=== PATIENT | female | born 1950 | race Caucasian/White ===

== ENCOUNTER 2018-07-30 06:20 | Day surgery (SDC) | payer MEDICARE, BC ==
[~2018-07-30 06:20] MED LIST: Acetaminophen TAB* 325 MG PO PRN
[2018-07-30] MEDS ORDERED: Midazolam* 1 MG/ML 5 ML VIAL (5 MG) ONE (07:26)
[2018-07-30 09:57] VITALS: BP 112/62
--- NOTE | 2018-07-30 10:01 | OP ---
OPERATIVE REPORT: DATE OF OPERATION: 07/30/18 DATE OF : 48 SURGEON: Ortiz Madrigal MD ANESTHESIA: Monitored anesthesia care. PRE-OP DIAGNOSIS: Cataract, right eye. POST-OP DIAGNOSIS: Cataract, right eye. OPERATIVE PROCEDURE: Extracapsular cataract extraction of the right eye with intraocular lens implant. IMPLANTS: SN60WF 21.5 diopter lens to the right eye. COMPLICATIONS: None. DESCRIPTION OF PROCEDURE: The patient was given phenylephrine 2.5% and cyclopentolate 1% eye drops to the operative eye in the preoperative area. The patient was sat in the upright position and corneal markings were placed at 0 and 180 degrees to assist in toric lens placement. The patient was taken to the operating room, where a time-out was taken to identify the correct patient, site, and side of surgery. The patient's right eye was prepped and draped in the usual sterile fashion with 5% Betadine. A second time-out was taken to verify the correct patient, side, and site of surgery and correct lens selection. A lid speculum was placed to the right eye. Corneal markings were placed at the 73- degree meridian. A 1 mm paracentesis blade was used to make a clear corneal incision in the superotemporal position. Preservative-free 1% lidocaine was injected into the anterior chamber. DisCoVisc was then injected into the anterior chamber. A 2.75 mm keratome blade was used to make a triplanar incision at the inferotemporal position. A cystotome initiated a capsulorrhexis, which was completed with Utrata forceps in a continuous and curvilinear manner. Hydrodissection of the lens was performed with BSS on a cannula. The lens could be spun in a capsular bag. The phacoemulsification handpiece was used with a divide- and-conquer technique to remove the nucleus. The I/A handpiece then removed the residual cortical lens material. Provisc was then injected to inflate the capsular bag and the eye pressure was then confirmed to be adequate pressure with applanation. The ORA system was then used to confirm the patient's lens power and astigmatism. The ORA system suggested a non-toric SN60WF 21.5 diopter lens for the least residual refractive error. Therefore, this lens was selected. I informed the patient of the change to the non-toric lens intraoperatively and she expressed understanding. The SN60WF 21.5 diopter lens was then injected into the capsular bag. The residual Provisc was then removed from the eye with the I/A handpiece. The corneal incisions were hydrated and no leaks occurred at physiologic pressure around 20 mmHg per palpation. The lid speculum was removed and drapes were removed. Maxitrol ointment was placed to the surface of the operative eye. An adhesive patch and shield was then placed on the operative eye. I again confirmed with her that given the ORA measurements, I did not place a Toric lens. The patient was taken to the postoperative area in stable condition. [id number]/[facility] #: [id number] MTDMaria Del Carmen
[2018-07-30] MEDS ORDERED: Lidocaine 1%* 5 ML VIAL ONE (12:52)
[2018-07-30] MEDS ORDERED: Tropicamide 1% OPTH.SOL* BTL ONE (12:52)
[2018-07-30] MEDS ORDERED: Phenylephrine OPHTH SOL 2.5%* 2 ML ONE (12:52)
[2018-07-30] MEDS ORDERED: Tetracaine 0.5% OPTH.SOL 4 ML* 1 DROP BTL ONE (12:52)
[2018-07-30] MEDS ORDERED: Ketorolac 0.5% OPHTH (NF) 0.5 % 5 ML BTL ONE (12:52)
[2018-07-30] MEDS ORDERED: Povidone Iodine 5% OPTH* 30 ML BTL ONE (12:52)
[2018-07-30] MEDS ORDERED: acetaZOLAMIDE TAB* 250 MG ONE (12:52)
[2018-07-30] MEDS ORDERED: Cyclopentolate 1% OPTH.SOL* 2 ML BTL ONE (12:52)
[2018-07-30] MEDS ORDERED: Neomycin/Polymy/Dex OPHTH.OIN* 3.5 GM ONE (12:52)
== END 2018-07-30 08:22 | disposition home or self-care (01) ==
LOC: OREAST 06:20
PROVIDERS: ATTEND Student in an Organized Health Care Education/Training Program
DX: H25.11 Age-related nuclear cataract, right eye (principal); H04.123 Dry eye syndrome of bilateral lacrimal glands; I48.91 Unspecified atrial fibrillation; Z79.01 Long term (current) use of anticoagulants; M06.9 Rheumatoid arthritis, unspecified
CPT/HCPCS: A9270-GY; J2250; V2632

== ENCOUNTER 2018-08-13 06:30 | Day surgery (SDC) | payer MEDICARE, BC ==
[2018-08-13] MEDS ORDERED: Midazolam* 1 MG/ML 2 ML VIAL (2 MG) ONE ×2 (07:18→07:19)
[2018-08-13 08:04] VITALS: BP 118/65
[2018-08-13] MEDS ORDERED: Tetracaine 0.5% OPTH.SOL 4 ML* 1 DROP BTL ONE (11:11)
[2018-08-13] MEDS ORDERED: Cyclopentolate 1% OPTH.SOL* 2 ML BTL ONE (11:11)
[2018-08-13] MEDS ORDERED: acetaZOLAMIDE TAB* 250 MG ONE (11:11)
[2018-08-13] MEDS ORDERED: Tropicamide 1% OPTH.SOL* BTL ONE (11:11)
[2018-08-13] MEDS ORDERED: Phenylephrine OPHTH SOL 2.5%* 2 ML ONE (11:11)
[2018-08-13] MEDS ORDERED: Lidocaine 1%* 5 ML VIAL ONE (11:11)
[2018-08-13] MEDS ORDERED: Ketorolac 0.5% OPHTH (NF) 0.5 % 5 ML BTL ONE (11:11)
[2018-08-13] MEDS ORDERED: Neomycin/Polymy/Dex OPHTH.OIN* 3.5 GM ONE (11:11)
[2018-08-13] MEDS ORDERED: Povidone Iodine 5% OPTH* 30 ML BTL ONE (11:11)
--- NOTE | 2018-08-13 11:31 | OP ---
OPERATIVE REPORT: DATE OF OPERATION: 08/13/18 DATE OF : 48 SURGEON: Ortiz Madrigal MD ANESTHESIA: Monitored anesthesia care. PRE-OP DIAGNOSIS: Cataract, left eye. POST-OP DIAGNOSIS: Cataract, left eye. OPERATIVE PROCEDURE: Extracapsular cataract extraction of the left eye with intraocular lens implant . IMPLANTS: SN60WF 21.0 diopter lens, left eye. COMPLICATIONS: None. DESCRIPTION OF PROCEDURE: The patient was given phenylephrine 2.5% and cyclopentolate 1% eye drops t o the operative eye in the preoperative area. The patient was taken to the operating room where a ti me-out was taken to identify the correct patient, site, and side of the surgery. The patient's left eye was prepped and draped in the usual sterile fashion with 5% Betadine. A second time-out was take n to verify the correct patient, site, and side of surgery, and correct lens implant. A lid speculum was placed to left eye. A 1-mm paracentesis blade was used to make a clear corneal incision in the inferotemporal position. Preservative- free 1% lidocaine was injected into the anterior chamber. Di sCoVisc was then injected into the anterior chamber. A 2.75-mm keratome blade was used to make a tri planar incision at the superotemporal position. A cystotome initiated a capsulorrhexis, which was co mpleted with Utrata forceps in a continuous and curvilinear manner. Hydrodissection of the lens was performed with BSS on a cannula. The lens could be spun in the capsular bag. The phacoemulsificatio n handpiece was used with a [id number] technique to remove the nucleus. The I/A handpiece th en removed the residual cortical lens material. ProVisc was then injected to inflate the capsular ba g. The ORA system was then used to confirm the correct lens selection. The planned SN60WF 21.[address] lens was then injected into the capsular bag. The residual ProVisc was then removed from the eye with the I/A handpiece. The corneal incisions were hydrated and no leaks occurred at physiologic pr essure around 20 mmHg per palpation. The lid speculum was removed and drapes removed. The patient w as taken to the postoperative area in stable condition. [id number]/[facility] #: [id number]
== END 2018-08-13 08:15 | disposition home or self-care (01) ==
LOC: OREAST 06:30
PROVIDERS: ATTEND Student in an Organized Health Care Education/Training Program
DX: H25.12 Age-related nuclear cataract, left eye (principal); H04.123 Dry eye syndrome of bilateral lacrimal glands; I48.91 Unspecified atrial fibrillation; Z79.01 Long term (current) use of anticoagulants; M06.9 Rheumatoid arthritis, unspecified; Z87.891 Personal history of nicotine dependence; F41.9 Anxiety disorder, unspecified
CPT/HCPCS: A9270-GY; J2250; V2632